=== PATIENT | female | born 1995 | race Caucasian/White ===

== ENCOUNTER 2017-09-14 19:11 | Emergency (ER) | payer MEDICAID ==
[~2017-09-14] VITALS: Ht 157.5 cm; Wt 49.9 kg
[2017-09-14 19:20] VITALS: BP 122/63
[2017-09-14 19:44] VITALS: BP 111/72
[2017-09-14] MEDS ORDERED: ONDANSETRON 4 MG ODT PO ONE (20:25)
== END 2017-09-14 20:44 | disposition home or self-care (01) ==
LOC: MED 19:11
DX: O26.891 Other specified pregnancy related conditions, first trimester (principal); K59.00 Constipation, unspecified; O21.9 Vomiting of pregnancy, unspecified
CPT/HCPCS: 81002; 81025; 99283; S0119

== ENCOUNTER 2021-07-22 14:28 | Emergency (ER) | payer MEDICAID, OTHER ==
[~2021-07-22] VITALS: Ht 157.5 cm; Wt 54.4 kg
[2021-07-22 14:28] VITALS: BP 111/90
--- NOTE | 2021-07-22 14:33 | NUR ---
PT AMB TO BED 8.
--- NOTE | 2021-07-22 14:47 | NUR ---
DAI Suero at bedside evaluating patient.
[2021-07-22] MEDS ORDERED: NAPR-54 PO (15:41)
[2021-07-22] MEDS ORDERED: DICL20GE TP (15:42)
--- NOTE | 2021-07-22 16:00 | NUR ---
Patient discharged with v/s stable. Written and verbal after care instructions given. Patient alert, oriented and verbalized understanding of instructions. Ambulatory with steady gait. All questions addressed prior to discharge. ID band removed. Patient advised to follow up with PMD. Rx of Naproxen and Diclofenac given. Opportunity to ask questions provided and answered.
--- NOTE | 2021-07-22 18:08 | NUR ---
Chart checked and completed. The patient's care was reviewed and supervised by Gloria Davis RN.
== END 2021-07-22 16:00 | disposition home or self-care (01) ==
LOC: MED 14:28
DX: M25.561 Pain in right knee (principal)
CPT/HCPCS: 73562; 99283; Q0092

== ENCOUNTER 2022-09-02 03:35 | Emergency (ER) | payer MEDICAID, OTHER ==
[~2022-09-02] VITALS: Ht 157.5 cm; Wt 56.7 kg
[~2022-09-02 03:35] MED LIST: DICL20GE TP; NAPR-54 PO
[2022-09-02 03:42] VITALS: BP 116/89; PULSE 82; RESP 16; TEMP 97.4; O2SAT 100
--- NOTE | 2022-09-02 03:47 | NUR ---
TO BED 1 FOLLOWING TRIAGE AFTER OBTAINING UA
[2022-09-02 04:00] VITALS: BP 116/89; PULSE 82; RESP 16; TEMP 97.4; O2SAT 100
--- NOTE | 2022-09-02 04:11 | NUR ---
PATIENT IS A 27/F WHO CAME IN DUE TO 1 DAY HISTORY OF DYSURIA,12/07 ASSOCIATED WITH URINARY FREQUENCY, URINARY URGENCY, SUPRAPUBIC PAIN & FLANK PAIN. NO FEVER, CHILLS, HEMATURIA NOTED. PMHX: ASTHMA NKA
[2022-09-02 05:32] LABS: APPEARANCE,URINE CLEAR (CLEAR); BILIRUBIN,URINE NEGATIVE (NEGATIVE); BLOOD, URINE TRACE-I (NEGATIVE); COLOR,URINE YELLOW (YELLOW); LEUKOCYTE ESTERASE ,URINE 3+ (NEGATIVE); NITRITE, URINE NEGATIVE (NEGATIVE); UGLUCOSE NEGATIVE (NEGATIVE)
[2022-09-02] MEDS ORDERED: IBUP-1842 PO (05:47)
[2022-09-02] MEDS ORDERED: CEPH250C16 PO (05:47)
[2022-09-02] MEDS ORDERED: PYR100 PO (05:47)
--- NOTE | 2022-09-02 06:00 | NUR ---
Patient discharged with v/s stable. Written and verbal after care instructions given and explained. Patient alert, oriented and verbalized understanding of instructions. Ambulatory with steady gait. All questions addressed prior to discharge. ID band removed. Patient advised to follow up with PMD. Rx of Keflex, Motrin & Pyridium given. Patient educated on indication of medication including possible reaction and side effects. Opportunity to ask questions provided and answered.
== END 2022-09-02 06:00 | disposition home or self-care (01) ==
LOC: MED 03:35
DX: N39.0 Urinary tract infection, site not specified (principal); Z79.899 Other long term (current) drug therapy
CPT/HCPCS: 81001; 81025; 87086; 99283